=== PATIENT | male | born 1985 | race Caucasian/White ===

== ENCOUNTER 2023-04-01 22:04 | Emergency (ER) | payer BC ==
[~2023-04-01] VITALS: Ht 180.3 cm; Wt 104.3 kg
[2023-04-02] MEDS ORDERED: Ondansetron Hydrochloride 4 MG TAB SL ONE (03:00)
[2023-04-02] MEDS ORDERED: MEPERIDINE HYDROCHLORIDE 25 MG/1 ML VIAL IM ONE (03:00)
== END 2023-04-02 03:40 | disposition home or self-care (01) ==
LOC: ED 22:04 → EDBD 22:10 → ED 22:10
DX: R19.00 Intra-abdominal and pelvic swelling, mass and lump, unspecified site (principal)

== ENCOUNTER 2023-05-22 21:47 | Emergency (ER) | payer BC ==
[~2023-05-22] VITALS: Ht 180.3 cm; Wt 108.9 kg
[2023-05-22] MEDS ORDERED: EFFEXOR XR75 M1 PO (21:56)
[2023-05-22] MEDS ORDERED: NEURONTIN300 MG PO (21:57)
[2023-05-22 22:22] LABS: BASO # 0.1 10*3/uL (0.0-0.1); BASO % 0.6 % (0.0-1.0); EOS # 0.2 10*3/uL (0.0-0.4); EOS % 1.7 % (1.0-4.0); HEMATOCRIT 39.7 % (42.0-52.0); LYMPH # 3.5 10*3/uL (1.3-4.4); LYMPH % 34.9 % (27.0-41.0); MEAN CELL VOLUME 88.8 fl (80.0-94.0); MEAN CORPUSCULAR HGB 29.5 pg (27.0-31.0); MEAN CORPUSCULAR HGB CONC 33.2 g/dl (33.0-37.0); MEAN PLATELET VOLUME 10.7 fl (9.6-12.3); MONO # 0.8 10*3/uL (0.1-1.0); MONO % 7.9 % (3.0-9.0); NEUT # 5.5 10*3/uL (2.3-7.9); NEUT % 54.7 % (47.0-73.0); PLATELET COUNT AUTOMATED 216 10*3/uL (130-400); RED BLOOD COUNT 4.47 10*6/uL (4.50-5.90); WHITE BLOOD COUNT 10.1 10*3/uL (4.8-10.8)
[2023-05-22 22:41] LABS: BUN 11 mg/dl (9-23); CHLORIDE 105 mmol/L (98-107); POTASSIUM 3.5 mmol/L (3.4-5.1)
[2023-05-22] MEDS ORDERED: Promethazine Hydrochloride 25 MG/ML VIAL IM ONE (23:30)
[2023-05-22] MEDS ORDERED: MEPERIDINE HYDROCHLORIDE 25 MG/1 ML VIAL IM ONE (23:30)
== END 2023-05-22 23:48 | disposition home or self-care (01) ==
LOC: ED 21:47
PROVIDERS: Internal Medicine
DX: R19.05 Periumbilic swelling, mass or lump (principal); K76.9 Liver disease, unspecified; F41.9 Anxiety disorder, unspecified; F31.9 Bipolar disorder, unspecified

== ENCOUNTER 2023-05-25 21:44 | Emergency (ER) | payer BC ==
[~2023-05-25 21:44] MED LIST: EFFEXOR XR75 M1 PO; NEURONTIN300 MG PO
[2023-05-25] MEDS ORDERED: SODIUM CHLORIDE 0.9% 1,000 ML IV ONE (22:05)
[2023-05-25] MEDS ORDERED: IOHEXOL 300 MG/ML 100 ML VIAL IV ONE (22:10)
[2023-05-25 22:31] LABS: BASO # 0.1 10*3/uL (0.0-0.1); BASO % 0.8 % (0.0-1.0); EOS # 0.2 10*3/uL (0.0-0.4); HEMATOCRIT 40.4 % (42.0-52.0); LYMPH # 3.6 10*3/uL (1.3-4.4); LYMPH % 22.6 % (27.0-41.0); MEAN CELL VOLUME 87.8 fl (80.0-94.0); MEAN CORPUSCULAR HGB 29.3 pg (27.0-31.0); MEAN CORPUSCULAR HGB CONC 33.4 g/dl (33.0-37.0); MEAN PLATELET VOLUME 10.9 fl (9.6-12.3); MONO % 6.2 % (3.0-9.0); NEUT # 10.9 10*3/uL (2.3-7.9); NEUT % 69.1 % (47.0-73.0); PLATELET COUNT AUTOMATED 239 10*3/uL (130-400); RED CELL DISTRI WIDTH 13.1 % (0-14.5); WHITE BLOOD COUNT 15.7 10*3/uL (4.8-10.8)
[2023-05-25 22:48] LABS: ACT PARTIAL THROMBO TIME 26.5 SECONDS (20.0-32.1)
[2023-05-25 22:51] LABS: ALKALINE PHOSPHATASE 67 U/L (46-116); BUN 9 mg/dl (9-23); CHLORIDE 103 mmol/L (98-107); LIPASE 102 U/L (12-53); POTASSIUM 3.6 mmol/L (3.4-5.1); SGPT/ALT 23 U/L (5-49); TOTAL PROTEIN 7.1 gm/dL (6.0-8.0)
[2023-05-25] MEDS ORDERED: Piperacillin Sodium/Tazobact 50 ML IV ONE (23:30)
[2023-05-25] MEDS ORDERED: Clindamycin Phosphate 50 ML IV ONE (23:30)
[2023-05-25] MEDS ORDERED: Vancomycin Hydrochloride 250 ML IV ONE (23:30)
[2023-05-25] MEDS ORDERED: Nicotine 14 MG PATCH T ONE (23:35)
[2023-05-25] MEDS ORDERED: SODIUM CHLORIDE 0.9% 1,000 ML IV SCH (23:35)
== END 2023-05-26 01:25 | disposition short-term general hospital (02) ==
LOC: ED 21:44
PROVIDERS: Internal Medicine
DX: M79.3 Panniculitis, unspecified (principal); M72.6 Necrotizing fasciitis; R11.2 Nausea with vomiting, unspecified; Z87.891 Personal history of nicotine dependence